=== PATIENT | male | born 1970 | race Caucasian/White ===

== ENCOUNTER 2018-09-16 09:19 | Emergency (ER) | payer MEDICARE, MEDICAID ==
[~2018-09-16] VITALS: Ht 167.6 cm; Wt 112.9 kg
[2018-09-16] MEDS ORDERED: IPRATRPIUM/ALBUTEROL 0.5/2.5MG 3 ML NEBU. NEB ONE (10:00)
--- NOTE | 2018-09-16 10:26 | RAD ---
CHEST PA LATERAL History: Cough, chest pain Comparison: None. Findings: Single lateral and 2 PA views of the chest are submitted. There is large left tension pneumothorax, complete collapse of the left lung. There is some deviation of the trachea to the right, also mild deviation of the cardiac silhouette to the right. There is probable very small left pleural effusion. Impression: 1. There is large left tension pneumothorax, complete collapse of the left lung. FOR INTERNAL CODING PURPOSES Critical result: Findings discussed with LIDA GONZALEZ at 09/16/2018 10:20 AM. RESULT CODE: (C) Electronically signed by: Rajendra Dos Santos MD (09/16/2018 10:21 AM) [id number]
[2018-09-16] MEDS ORDERED: IV NORMAL SALINE 1,000ML 1,000 ML IV ONE (10:45)
[2018-09-16 11:00] LABS: BASO # 0.1 x10^3/uL (0.0-0.2); BASO % 1 % (0-3); EOS # 0.1 x10^3/uL (0.0-0.7); EOS % 1 % (0-3); HEMATOCRIT 47.4 % (39.0-53.0); HEMOGLOBIN 15.7 g/dL (13.0-17.5); LYMPH # 2.4 x10^3/uL (1.0-4.8); LYMPH % 27 % (24-48); MEAN CORPUSCULAR HEMOGLOBIN 33 pg (25-35); MEAN CORPUSCULAR HGB CONC 33 g/dL (31-37); MEAN CORPUSCULAR VOLUME 99 fL (79-100); MONO # 1.1 x10^3/uL (0.0-1.1); MONO % 13 % (0-9); NEUT # 5.2 x10^3uL (1.8-7.7); NEUT % 58 % (31-73); PLATELET COUNT 271 x10^3/uL (140-400); RED BLOOD COUNT 4.77 x10^6/uL (4.30-5.70); RED CELL DISTRIBUTION WIDTH 12.9 % (11.5-14.5); WHITE BLOOD COUNT 8.9 x10^3/uL (4.0-11.0)
[2018-09-16] MEDS ORDERED: LORazepam 2 MG/ML VIAL IV ONE (11:00)
--- NOTE | 2018-09-16 11:23 | PHYS DOC ---
Past History Past Medical History: CAD, Hypertension, Other (Abilio syndrome with mental retardation) Past Surgical History: No Surgical History Alcohol Use: None Drug Use: None Adult General Chief Complaint Chief Complaint: COUGH HPI HPI Patient is a 47 year old male with history of Manuel syndrome and mental retardation brought in by his father because of cough. Patient had complaining of pain in left side of chest and cough for the last 4 or 5 days and was seen at his primary care physician office today and after having chest x-ray sent to emergency room because of" congestion of left lung"in chest x-ray. Patient's father states he did not have fever and sick contact, vomiting, diarrhea, complaining of sore throat. Review of Systems Review of Systems Constitutional: Denies fever or chills [] Eyes: Denies change in visual acuity, redness, or eye pain [] HENT: Denies nasal congestion or sore throat [] Respiratory: Reports cough and shortness of breath Cardiovascular: No additional information not addressed in HPI [] GI: Denies abdominal pain, nausea, vomiting, bloody stools or diarrhea [] : Denies dysuria or hematuria [] Musculoskeletal: Denies back pain or joint pain [] Integument: Denies rash or skin lesions [] Neurologic: Denies headache, focal weakness or sensory changes [] Endocrine: Denies polyuria or polydipsia [] All other systems were reviewed and found to be within normal limits, except as documented in this note. Current Medications Current Medications Current Medications Medications (Trade) Dose Ordered Sig/Krystal Start Time Stop Time Status Last Admin Dose Admin Albuterol/ Ipratropium (Duoneb) 3 ml 1X ONCE 09/16/18 10:00 09/16/18 10:01 DC 09/16/18 09:52 3 ML Lorazepam (Ativan) 1 mg 1X ONCE 09/16/18 11:00 09/16/18 11:01 DC 09/16/18 10:46 1 MG Sodium Chloride 1,000 ml @ 40 mls/hr 1X ONCE 09/16/18 10:45 09/17/18 11:44 09/16/18 10:47 40 MLS/HR Allergies Allergies Allergies Coded Allergies Type Severity Reaction Last Updated Verified Sulfa (Sulfonamide Antibiotics) Allergy Intermediate 09/16/18 Yes Physical Exam Physical Exam Constitutional: Well nourished, mild distress, non-toxic appearance. [] HENT: Normocephalic, atraumatic, bilateral external ears normal, oropharynx moist, no oral exudates, nose normal. [] Eyes: PERRLA, EOMI, conjunctiva normal, no discharge. [] Neck: Normal range of motion, no tenderness, supple, no stridor. [] Cardiovascular:Heart rate regular rhythm, no murmur [] Lungs & Thorax: Decrease of air movement in left lung, no respiratory distress with O2 sat of 92-95% at room air Abdomen: Bowel sounds normal, soft, no tenderness, no masses, no pulsatile masses. [] Skin: Warm, dry, no erythema, no rash. [] Back: No tenderness, no CVA tenderness. [] Extremities: No tenderness, no cyanosis, no clubbing, ROM intact, no edema. [] Neurologic: Alert and oriented X 1, normal motor function, normal sensory function, no focal deficits noted. [] Current Patient Data Vital Signs Vital Signs Date Time Temp Pulse Resp B/P (MAP) Pulse Ox O2 Delivery O2 Flow Rate FiO2 09/16/18 09:20 98.0 69 20 94 Room Air Lab Results Laboratory Tests Test 09/16/18 10:40 White Blood Count 8.9 x10^3/uL (4.0-11.0) Red Blood Count 4.77 x10^6/uL (4.30-5.70) Hemoglobin 15.7 g/dL (13.0-17.5) Hematocrit 47.4 % (39.0-53.0) Mean Corpuscular Volume 99 fL (79-100) Mean Corpuscular Hemoglobin 33 pg (25-35) Mean Corpuscular Hemoglobin Concent 33 g/dL (31-37) Red Cell Distribution Width 12.9 % (11.5-14.5) Platelet Count 271 x10^3/uL (140-400) Neutrophils (%) (Auto) 58 % (31-73) Lymphocytes (%) (Auto) 27 % (24-48) Monocytes (%) (Auto) 13 % (0-9) H Eosinophils (%) (Auto) 1 % (0-3) Basophils (%) (Auto) 1 % (0-3) Neutrophils # (Auto) 5.2 x10^3uL (1.8-7.7) Lymphocytes # (Auto) 2.4 x10^3/uL (1.0-4.8) Monocytes # (Auto) 1.1 x10^3/uL (0.0-1.1) Eosinophils # (Auto) 0.1 x10^3/uL (0.0-0.7) Basophils # (Auto) 0.1 x10^3/uL (0.0-0.2) Troponin I Quantitative < 0.017 ng/mL (0-0.055) EKG EKG EKG interpreted by me. EKG at 1052 showed normal sinus rhythm at rate of 80, left atrial abnormalities, left mcgrath axis, no acute ST and T-wave abnormalities. Radiology/Procedures Radiology/Procedures [address] [address] IMAGING REPORT Signed PATIENT: HAYDEN FRANKLIN ACCOUNT: [id number] : 1970 LOCATION: ER AGE: 47 SEX: M EXAM STATUS: REG ER ORD. PHYSICIAN: LIDA GONZALEZ MD REASON: cough PROCEDURE: CHEST PA & LATERAL CHEST PA LATERAL History: Cough, chest pain Comparison: None. Findings: Single lateral and 2 PA views of the chest are submitted. There is large left tension pneumothorax, complete collapse of the left lung. There is some deviation of the trachea to the right, also mild deviation of the cardiac silhouette to the right. There is probable very small left pleural effusion. Impression: 1. There is large left tension pneumothorax, complete collapse of the left lung. FOR INTERNAL CODING PURPOSES Critical result: Findings discussed with LIDA GONZALEZ at 09/16/2018 10:20 AM. RESULT CODE: (C) Electronically signed by: J Luis Dos Santos MD (09/16/2018 10:21 AM) [id number] [address] [address] IMAGING REPORT Signed PATIENT: HAYDEN FRANKLIN ACCOUNT: [id number] : 1970 LOCATION: ER AGE: 47 SEX: M EXAM STATUS: REG ER ORD. PHYSICIAN: LIDA GONZALEZ MD REASON: POST CHEST TUBE PROCEDURE: PORTABLE CHEST 1V PORTABLE CHEST 1V History: POST CHEST TUBE PLACEMENT Comparison: Exam earlier the same day Findings: AP portable view of the chest is submitted. There is now small caliber left chest tube present, previously seen left pneumothorax significantly smaller although probable residual small left pneumothorax more laterally and near the lung base. There is some airspace opacity of the mid to superior left hemithorax likely component of atelectasis. Impression: 1. There is now small caliber left chest tube, previously seen left pneumothorax smaller although small residual left pneumothorax. There is some airspace opacity of the mid to superior left hemithorax which may be due to atelectasis. Electronically signed by: J Luis Dos Santos MD (09/16/2018 11:28 AM) [id number] DICTATED AND SIGNED BY: J LUIS DOS SANTOS MD DATE: 09/16/18 1126 CC: EMILY DENIS MD; LIDA GONZALEZ MD ~ Course & Med Decision Making Course & Med Decision Making Pertinent Labs and Imaging studies reviewed. (See chart for details) Evaluation of patient in ER showed 47-year-old male patient sent from physician office because of abnormal chest x-ray. Chest x-ray showed patient pneumothorax but patient did not have any respiratory distress. 8 Macedonian chest tube(Cook tube ) was placed with successful opening of the lung. Dr. Denis informed at 1112 and recommended to transfer patient to [facility] [place]. Dr. Cote accepted admission at 1114 to [facility] [place]. Dragon Disclaimer Dragon Disclaimer This electronic medical record was generated, in whole or in part, using a voice recognition dictation system. Departure Departure: Impression: Primary Impression: Spontaneous tension pneumothorax Additional Impressions: Cough Hypoxia Manuel syndrome Disposition: XFER SHT-TRM HOSP ([facility] [place] at 11:15) Admitting Physician: Kuldeep Cote (Dr. Cote accepted transfer to [facility] [place] at 1114) Condition: IMPROVED Referrals: EMILY DENIS MD (PCP) Chest Tube Chest Tube Indication: Left tension pneumothorax Consent: Consent obtained from patient father Pre-Medication: Ativan Procedure: The patient was placed in a semirecumbent position with the head of the bed at 30 degrees. Local anesthesia over the insertion site of anterior axillary line at fifth intercostal space of left side of chest was with 1% lidocaine. An 3 mm incision was made in fifth intercostal space and 8 Macedonian guided catheter was placed with good air coming back without connection to waterseal. X-ray showed expansion of lung. The patient tolerated the procedure well Complications: None Critical Care Time Critical care time was 70 minutes exclusive of procedures. Problem Qualifiers LIDA GONZALEZ MD Sep 16, 2018 11:23
--- NOTE | 2018-09-16 11:32 | RAD ---
PORTABLE CHEST 1V History: POST CHEST TUBE PLACEMENT Comparison: Exam earlier the same day Findings: AP portable view of the chest is submitted. There is now small caliber left chest tube present, previously seen left pneumothorax significantly smaller although probable residual small left pneumothorax more laterally and near the lung base. There is some airspace opacity of the mid to superior left hemithorax likely component of atelectasis. Impression: 1. There is now small caliber left chest tube, previously seen left pneumothorax smaller although small residual left pneumothorax. There is some airspace opacity of the mid to superior left hemithorax which may be due to atelectasis. Electronically signed by: Rajendra Dos Santos MD (09/16/2018 11:28 AM) [id number]
[2018-09-16 11:45] VITALS: BP 153/67
[2018-09-16 12:01] LABS: ALBUMIN 3.7 g/dL (3.4-5.0); ALBUMIN/GLOBULIN RATIO 0.9 (1.0-1.7); CALCIUM 10.4 mg/dL (8.5-10.1); CREATININE 1.5 mg/dL (0.7-1.3); GFR 50.4; TOTAL BILIRUBIN 0.5 mg/dL (0.2-1.0); TOTAL PROTEIN 7.6 g/dL (6.4-8.2)
--- NOTE | 2018-09-17 15:58 | EKG ---
[address] [address] Test Date: 2018-09-16 Test Time: 10:52:44 Pat Name: HAYDEN FRANKLIN Department: Room: Gender: M [employer]: MONI : 1970 Requested By: LIDA GONZALEZ Order Number: [id number] Reading MD: Measurements Intervals [place] Rate: 80 P: -158 SD: 186 QRS: -12 QRSD: 114 T: 61 QT: 404 QTc: 470 Interpretive Statements SINUS RHYTHM LEFT ATRIAL ABNORMALITY LEFTWARD AXIS QRS(T) CONTOUR ABNORMALITY CONSISTENT WITH INFERIOR INFARCT PROBABLY OLD ABNORMAL ECG RI6.01 No previous ECG available for comparison
== END 2018-09-16 12:41 | disposition short-term general hospital (02) ==
LOC: ER 09:19
DX: J93.0 Spontaneous tension pneumothorax (principal); R09.02 Hypoxemia; Q93.82 Williams syndrome; I25.10 Atherosclerotic heart disease of native coronary artery without angina pectoris; I10 Essential (primary) hypertension; Z88.2 Allergy status to sulfonamides
CPT/HCPCS: 32551; 36415; 71045; 71046; 80053; 83880; 84484; 85025; 93005; 94640; 96374; 99291; J2060; J7620; J7030

== ENCOUNTER 2019-01-18 08:56 | Inpatient (IN) | payer MEDICARE, OTHER, BC ==
[~2019-01-18] VITALS: Ht 157.5 cm; Wt 115.2 kg
[2019-01-18 09:24] VITALS: BP 147/81
[2019-01-18 10:01] LABS: BASO # 0.1 x10^3/uL (0.0-0.2); BASO % 1 % (0-3); EOS # 0.1 x10^3/uL (0.0-0.7); EOS % 1 % (0-3); HEMATOCRIT 43.9 % (39.0-53.0); HEMOGLOBIN 14.6 g/dL (13.0-17.5); LYMPH # 1.2 x10^3/uL (1.0-4.8); LYMPH % 12 % (24-48); MEAN CORPUSCULAR HEMOGLOBIN 31 pg (25-35); MEAN CORPUSCULAR HGB CONC 33 g/dL (31-37); MEAN CORPUSCULAR VOLUME 93 fL (79-100); MONO # 1.1 x10^3/uL (0.0-1.1); MONO % 11 % (0-9); NEUT # 7.3 x10^3uL (1.8-7.7); NEUT % 75 % (31-73); PLATELET COUNT 290 x10^3/uL (140-400); RED BLOOD COUNT 4.71 x10^6/uL (4.30-5.70); WHITE BLOOD COUNT 9.7 x10^3/uL (4.0-11.0)
[2019-01-18 10:23] LABS: ALBUMIN 3.6 g/dL (3.4-5.0); ALBUMIN/GLOBULIN RATIO 0.9 (1.0-1.7); CALCIUM 10.4 mg/dL (8.5-10.1); CREATININE 1.5 mg/dL (0.7-1.3); GFR 50.2; POTASSIUM 3.9 mmol/L (3.5-5.1); TOTAL BILIRUBIN 0.5 mg/dL (0.2-1.0); TOTAL PROTEIN 7.8 g/dL (6.4-8.2)
[2019-01-18] MEDS ORDERED: IOHEXOL 300 MG/ML 75 ML VIAL. IV ONE (10:45)
--- NOTE | 2019-01-18 11:21 | EKG ---
[address] [address] Test Date: 2019-01-18 Test Time: 10:24:58 Pat Name: HAYDEN AZEVEDO Department: Room: [facility] Gender: M Compensator: MONI : 1970 Requested By: EMILY DENIS Order Number: [id number] Reading MD: Measurements Intervals [place] Rate: 70 P: 31 FL: 186 QRS: -14 QRSD: 124 T: 59 QT: 430 QTc: 467 Interpretive Statements SINUS RHYTHM LEFTWARD AXIS QRS(T) CONTOUR ABNORMALITY CONSISTENT WITH INFERIOR INFARCT POSSIBLY RECENT ST & T ABNORMALITY, CONSIDER HIGH LATERAL ISCHEMIA OR LEFT VENTRICULAR STRAIN ABNORMAL ECG RI6.02 No previous ECG available for comparison
[2019-01-18] MEDS ORDERED: CHOL10003 PO (11:29)
[2019-01-18] MEDS ORDERED: OMEG-33 PO (11:29)
[2019-01-18] MEDS ORDERED: LEVO25TA4 PO (11:29)
[2019-01-18] MEDS ORDERED: ALLO100T PO (11:29)
[2019-01-18] MEDS ORDERED: LISI1TAB5 PO (11:29)
[2019-01-18] MEDS ORDERED: BENZ-8 PO (11:29)
[2019-01-18] MEDS ORDERED: APIX5TAB3 PO (11:29)
--- NOTE | 2019-01-18 12:19 | RAD ---
Chest CTA History: Elevated d-dimer Technique: After bolus of intravenous contrast, CT imaging was performed of the chest. Multiplanar reconstruction images to include MIP reconstruction images are submitted. Exposure: One or more of the following individualized dose reduction techniques were utilized for this examination: 1. Automated exposure control 2. Adjustment of the mA and/or kV according to patient size 3. Use of iterative reconstruction technique. Comparison: None Findings: [ ] There is motion degradation. No central pulmonary embolism is identified of the main pulmonary arteries although otherwise cannot accurately evaluate for pulmonary embolic disease on this exam due to degree of contrast opacification of the pulmonary arteries and motion. Heart is enlarged. There is a 8.1 cm transverse by 8.1 cm AP by about 7.6 cm cc pleural-based hypodense collection along the left hemidiaphragm with adjacent atelectasis. Internal density measurements are about 35 Hounsfield units. There is other scattered mild mosaic attenuation of the lung parenchyma bilaterally although probably accentuated by motion. There is no pneumothorax. There is mild gas distention of esophagus. There is a small hyperenhancing lesion of the right lobe of the liver closer to the dome about 0.8 cm image 81 series 3. Left kidney is not seen on this exam. There is mild to moderate reverse S-shaped scoliosis of the thoracic spine. Impression: 1. No central pulmonary embolism is identified in the main pulmonary arteries although otherwise cannot accurately evaluate for pulmonary embolic disease on this exam. 2. There is more localized collection along the left hemidiaphragm apparently pleural-based with adjacent atelectasis, internal density measurements more likely due to complex fluid of uncertain sterility than soft tissue density. 3. Heart is enlarged. 4. There is a small nonspecific hyperenhancing lesion of the right lobe of the liver closer to the dome, otherwise cannot accurately evaluate. 5. There is mild gas distention of the esophagus. Electronically signed by: Rajendra Dos Santos MD (01/18/2019 12:16 PM) [id number]
[2019-01-18 13:13] LABS: BACTERIA,URINE 0 /HPF (0-FEW); BILIRUBIN,URINE NEG (NEG); CLARITY,URINE CLEAR; COLOR,URINE YELLOW; GLUCOSE,URINE NEG (NEG); NITRITE,URINE NEG (NEG); SQUAMOUS EPITHELIAL CELL,UR OCC /LPF; UROBILINOGEN,URINE 0.2 mg/dL (0.2 mg/dL); WBC,URINE 0 /HPF (0-4)
[2019-01-18 14:08] VITALS: BP 110/61
[2019-01-18] MEDS: IPRATRPIUM/ALBUTEROL 0.5/2.5MG 3 ML NEBU. NEB SCH ×2 (15:39→20:56)
[2019-01-18 19:53] VITALS: BP 129/83
[2019-01-18] MEDS: BENZONATATE 100 MG CAPSULE. PO SCH (20:56)
[2019-01-18 23:20] VITALS: BP 117/68
[2019-01-19] MEDS: IPRATRPIUM/ALBUTEROL 0.5/2.5MG 3 ML NEBU. NEB SCH ×4 (05:18→20:24)
[2019-01-19] MEDS: LEVOTHYROXINE 25 MCG TABLET. PO SCH (06:10)
[2019-01-19 06:12] VITALS: BP 136/73
[2019-01-19 07:03] LABS: BASO # 0.1 x10^3/uL (0.0-0.2); BASO % 1 % (0-3); EOS # 0.2 x10^3/uL (0.0-0.7); EOS % 3 % (0-3); HEMATOCRIT 40.7 % (39.0-53.0); HEMOGLOBIN 13.8 g/dL (13.0-17.5); LYMPH # 1.4 x10^3/uL (1.0-4.8); LYMPH % 27 % (24-48); MEAN CORPUSCULAR HEMOGLOBIN 32 pg (25-35); MEAN CORPUSCULAR HGB CONC 34 g/dL (31-37); MEAN CORPUSCULAR VOLUME 94 fL (79-100); MONO # 0.9 x10^3/uL (0.0-1.1); MONO % 18 % (0-9); NEUT # 2.6 x10^3uL (1.8-7.7); NEUT % 50 % (31-73); PLATELET COUNT 242 x10^3/uL (140-400); RED BLOOD COUNT 4.35 x10^6/uL (4.30-5.70); RED CELL DISTRIBUTION WIDTH 14.1 % (11.5-14.5); WHITE BLOOD COUNT 5.1 x10^3/uL (4.0-11.0)
[2019-01-19 07:11] LABS: CALCIUM 9.4 mg/dL (8.5-10.1); CREATININE 1.3 mg/dL (0.7-1.3); GFR 59.2; POTASSIUM 3.2 mmol/L (3.5-5.1)
[2019-01-19] MEDS: predniSONE 20 MG TABLET PO SCH (08:45)
[2019-01-19] MEDS: OMEGA-3 FATTY ACIDS/FISH OIL 1,000 MG CAPSULE. PO SCH (08:45)
[2019-01-19] MEDS: APIXABAN 5 MG TABLET. PO SCH (08:45)
[2019-01-19] MEDS: hydroCHLOROthiazide 12.5 MG CAPSULE PO SCH (08:45)
[2019-01-19] MEDS: LISINOPRIL 20 MG TABLET PO SCH (08:45)
[2019-01-19] MEDS: BENZONATATE 100 MG CAPSULE. PO SCH ×3 (08:45→20:24)
[2019-01-19] MEDS: CHOLECALCIFEROL (VITAMIN D3) 1,000 UNIT TABLET PO SCH (08:45)
[2019-01-19] MEDS: ALLOPURINOL 100 MG TABLET. PO SCH (08:45)
[2019-01-19] MEDS ORDERED: POTASSIUM CHLORIDE 20 MEQ TABLET.ER. PO ONE (09:00)
[2019-01-19 10:01] VITALS: BP 133/72
[2019-01-19 14:35] VITALS: BP 117/66
--- NOTE | 2019-01-19 17:55 | RAD ---
Bilateral lower extremity venous duplex study 01/19/2019 Clinical History: Elevated d-dimer. Technique: Using a combination of real time ultrasound imaging and color-flow and pulse Doppler imaging techniques along with graded compression and augmentation, duplex evaluation of the deep venous system of the both lower extremities was performed. Multiple images were obtained. Findings: This study is limited to some degree due to the patient's large body habitus. There is no sonographic evidence of deep venous thrombosis involving the visualized deep venous structures of either lower extremity. Impression: Negative study. Electronically signed by: Oziel Bundy MD (01/19/2019 5:52 PM) [facility]
[2019-01-19 18:44] VITALS: BP 106/72
[2019-01-19 19:55] VITALS: BP 121/69
[2019-01-20 00:30] VITALS: BP 106/50
--- NOTE | 2019-01-20 05:27 | PN ---
DATE: SUBJECTIVE: A 48-year-old male with some difficulty in breathing. The patient has been given breathing treatments, some prednisone, but a CT scan demonstrated a pleural effusion or some other collection of fluid in that left lower lobe. As a result of this, the patient was admitted to the hospital or continued to be in the hospital, try to get a tap on him, thoracentesis. Radiology says he probably needs a biopsy with this type of a fluid collection. We will discuss with the family whether or not they wanted him transferred down to [place] now or to do this as an outpatient. OBJECTIVE: VITAL SIGNS: Otherwise, his vital signs remained stable. He is feeling better overall and his blood pressure is 130/70, respiratory rate 16, pulse 90, afebrile. GENERAL: The patient is alert, baseline for him. LUNGS: Occasional rhonchi noted, but moving air better. CARDIOVASCULAR: Regular sinus rhythm. ABDOMEN: Soft, nontender. EXTREMITIES: No clubbing, cyanosis, nor edema. NEUROLOGIC: At baseline. IMPRESSION: Dyspnea, fluid collection in the left lower lobe, chronic kidney disease stage 3. Hypokalemia, elevated D-dimer. PLAN: We will make arrangements for possible transfer or outpatient biopsy of this area. EMILY DENIS MD DR: RODRIGUEZ/kendal JOB#: [id number] / [id number]
[2019-01-20] MEDS: IPRATRPIUM/ALBUTEROL 0.5/2.5MG 3 ML NEBU. NEB SCH ×2 (05:40→10:38)
[2019-01-20 06:00] VITALS: BP 142/67
[2019-01-20] MEDS: LEVOTHYROXINE 25 MCG TABLET. PO SCH (06:01)
[2019-01-20] MEDS: LISINOPRIL 20 MG TABLET PO SCH (07:52)
[2019-01-20] MEDS: predniSONE 20 MG TABLET PO SCH (07:52)
[2019-01-20] MEDS: ALLOPURINOL 100 MG TABLET. PO SCH (07:52)
[2019-01-20] MEDS: OMEGA-3 FATTY ACIDS/FISH OIL 1,000 MG CAPSULE. PO SCH (07:52)
[2019-01-20] MEDS: BENZONATATE 100 MG CAPSULE. PO SCH (07:52)
[2019-01-20] MEDS: APIXABAN 5 MG TABLET. PO SCH (07:52)
[2019-01-20] MEDS: CHOLECALCIFEROL (VITAMIN D3) 1,000 UNIT TABLET PO SCH (07:52)
[2019-01-20] MEDS: hydroCHLOROthiazide 12.5 MG CAPSULE PO SCH (07:52)
[2019-01-20 11:49] VITALS: BP 118/87
[2019-01-20] MEDS ORDERED: PRED-220 PO (12:29)
[2019-01-20] MEDS ORDERED: IPRA3AMP29 NEB (12:32)
--- NOTE | 2019-01-28 14:58 | DS ---
DATE OF DISCHARGE: 01/20/2019 HOSPITAL COURSE: A 48-year-old male, difficulty breathing, came in through the Emergency Room demonstrated a pleural effusion. The patient was diuresed. The patient is unable to have a thoracentesis here. They recommended possible even a resection of that area. In any case, with aggressive pulmonary toilet and IV Lasix, the patient made good progress during the rest of his hospitalization and was discharged to home in the care of his father. The patient otherwise made good progress, positive D-dimer, but the patient negative for any venous clots whatsoever. The patient made good progress during the rest of his hospitalization. There were no complications. IMPRESSION: Dyspnea, pleural effusions, developmentally delayed mild nonspecific hematuria. The patient will be discharged home on a heart healthy diet, decreased activity, and followup accordingly as an outpatient for his pleural effusion. EMILY DENIS MD DR: RODRIGUEZ/kendal JOB#: [id number] / [id number]
== END 2019-01-20 12:55 | disposition home or self-care (01) | DRG 187 ==
LOC: ICU 08:58
PROVIDERS: ADMIT Family Medicine; ATTEND Family Medicine
DX: J90 Pleural effusion, not elsewhere classified (principal); Z68.42 Body mass index [BMI] 45.0-49.9, adult; E87.6 Hypokalemia; N18.3 Chronic kidney disease, stage 3 (moderate); Z79.899 Other long term (current) drug therapy; Z88.2 Allergy status to sulfonamides; R31.9 Hematuria, unspecified; R06.00 Dyspnea, unspecified; R79.89 Other specified abnormal findings of blood chemistry; R62.50 Unspecified lack of expected normal physiological development in childhood
CPT/HCPCS: 36415; 71275; 80048; 80053; 81001; 82550; 83880; 84484; 85025; 85379; 85610; 85730; 87641; 93005; 93970; 94640; J7512; J7620; Q9967

== ENCOUNTER → 2019-09-26 | Outpatient (CLI) | payer MEDICARE, BC, OTHER ==
[~2019-09-26] MED LIST: ALLO100T PO; APIX5TAB3 PO; BENZ-8 PO; CHOL10003 PO; IPRA3AMP29 NEB; LEVO25TA4 PO; LISI1TAB19 PO; OMEG-33 PO; PRED-220 PO
--- NOTE | 2019-09-26 09:59 | RAD ---
EXAM: Chest, 2 views. HISTORY: Cough. COMPARISON: 01/18/2019 FINDINGS: 2 views of chest are obtained. There is lingular and bilateral lower lobe and suspected right upper lobe atelectasis or interstitial infiltrate. No pleural effusion or pneumothorax is seen. The heart is normal in size. IMPRESSION: Lingular, bilateral lower lobe and suspected right upper lobe atelectasis or interstitial infiltrate. Electronically signed by: Lisa Fermin MD (09/26/2019 9:55 AM) [id number]
== END | disposition home or self-care (01) ==
LOC: RAD 09:33
PROVIDERS: ATTEND Family Medicine
DX: R06.02 Shortness of breath (principal)
CPT/HCPCS: 71046

== ENCOUNTER 2021-04-17 10:24 | Emergency (ER) | payer MEDICARE, BC, OTHER ==
[~2021-04-17] VITALS: Ht 162.6 cm; Wt 112.6 kg
[~2021-04-17 10:24] MED LIST changes: -LISI1TAB19 PO; +LISI1TAB37 PO
[2021-04-17] MEDS ORDERED: ACETAMINOPHEN 325 MG TABLET PO ONE (11:00)
--- NOTE | 2021-04-17 11:01 | PHYS DOC ---
Past History Past Medical History: CAD, Hypertension, Other (KAREN COREY APRN) Past Surgical History: No Surgical History (KAREN COREY APRN) Alcohol Use: None Drug Use: None (KAREN COREY APRN) General Adult EDM: Chief Complaint: FEVER HPI: HPI: Patient is a 50-year-old male who presents with fever and cough since yesterday. Patient was brought in by his father who provided medical history due to patient being mentally challenged. Dad states that patient was exposed to possible Covid a few days ago. 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 Patient is afebrile on arrival. Patient received both doses of his Pfizer vaccination. Patient is hemodynamically stable. History of hypertension. (KAREN COREY APRN) Review of Systems: Review of Systems: Constitutional: Reports fever and chills Eyes: Denies change in visual acuity HENT: Denies nasal congestion or sore throat Respiratory: Reports cough. Denies shortness of breath. Cardiovascular: Denies chest pain or edema GI: Denies abdominal pain, nausea, vomiting, bloody stools or diarrhea : Denies dysuria Musculoskeletal: Denies back pain or joint pain Integument: Denies rash Neurologic: Denies headache, focal weakness or sensory changes Endocrine: Denies polyuria or polydipsia Lymphatic: Denies swollen glands Psychiatric: Denies depression or anxiety (KAREN COREY APRN) Allergies: Allergies: Allergies Coded Allergies Type Severity Reaction Last Updated Verified Sulfa (Sulfonamide Antibiotics) Allergy Intermediate 09/16/18 Yes (KAREN COREY APRN) Physical Exam: PE: Constitutional: Well developed, well nourished, no acute distress, non-toxic appearance. [] HENT: Normocephalic, atraumatic, bilateral external ears normal, oropharynx moist, no oral exudates, nose normal. [] Eyes: PERRLA, EOMI, conjunctiva normal, no discharge. [] Neck: Normal range of motion, no tenderness, supple, no stridor. [] Cardiovascular:Heart rate regular rhythm, no murmur [] Lungs & Thorax: Bilateral breath sounds clear to auscultation [] Abdomen: Bowel sounds normal, soft, no tenderness, no masses, no pulsatile masses. [] Skin: Warm, dry, no erythema, no rash. [] Back: No tenderness, no CVA tenderness. [] Extremities: No tenderness, no cyanosis, no clubbing, ROM intact, no edema. [] Neurologic: Alert and oriented X 3, normal motor function, normal sensory function, no focal deficits noted. [] Psychologic: Affect normal, judgement normal, mood normal. [] (KAREN COREY APRN) EKG: EKG: [] (KAREN COREY APRN) Radiology/Procedures: Radiology/Procedures: []EXAM: Chest, 2 views. HISTORY: Cough and fever. COMPARISON: 09/26/2019 FINDINGS: 2 views of the chest are obtained. There is partially consolidated left lower lobe infiltrate. There is right middle and lower lobe linear atelectasis or infiltrate. There is no pleural effusion or pneumothorax. There is a prominent cardiac silhouette. IMPRESSION: Partially consolidated left lower lobe infiltrate and right middle and lower lobe linear atelectasis or interstitial infiltrate. Electronically signed by: Lisa Fermin MD (04/17/2021 11:37 AM) [id number] (KAREN COREY APRN) Heart Score: C/O Chest Pain: No Risk Factors: Risk Factors: DM, Current or recent (<one month) smoker, HTN, HLP, family history of CAD, obesity. Risk Scores: Score 0 - 3: 2.5% MACE over next 6 weeks - Discharge Home Score 4 - 6: 20.3% MACE over next 6 weeks - Admit for Clinical Observation Score 7 - 10: 72.7% MACE over next 6 weeks - Early Invasive Strategies (KAREN COREY APRN) Course & Med Decision Making: Course & Med Decision Making Pertinent Labs and Imaging studies reviewed. (See chart for details) [] 50-year-old male presents with fever and cough that started yesterday. Patient is mentally challenged and was dropped off in the ER by his father. Dad reports patient was recently exposed to Covid. Patient received 2 doses of his Pfizer vaccine. Patient had a fever of 101 this morning and was given ibuprofen along with a albuterol treatment at home. Patient is hemodynamically stable. Afebrile. No hypoxia. Patient given 600 mg of Tylenol and tested for Covid. Chest x-ray shows partially consolidated left lower lobe infiltrate and right middle and lower lobe linear atelectasis. Patient most likely has Covid pneumonia. Patient treated with dexamethasone in the ER. Patient sent home with azithromycin and instructed patient to quarantine. Patient should drink plenty of fluids to prevent dehydration. Continue taking ibuprofen and Tylenol at home for fever and chills. Patient should return to the ER if symptoms worsen. (KAREN COREY APRN) Dragon Disclaimer: Dragon Disclaimer: This electronic medical record was generated, in whole or in part, using a voice recognition dictation system. (KAREN COREY APRN) Departure Departure: Impression: Primary Impression: Pneumonia, viral Additional Impression: Person under investigation for COVID-19 Disposition: HOME / SELF CARE / HOMELESS Condition: STABLE Referrals: EMILY DENIS MD (PCP) Patient Instructions: Pneumonia, Adult, [id number] Additional Instructions: You are seen in the emergency room for cough and fever. You were given Tylenol while in the ER along with dexamethasone. I am sending a prescription for azithromycin. Make sure you take the antibiotic in full and as directed. Fol low-up with your PCP. Return emergency room with worsening symptoms or concerns. You have been tested for or diagnosed with COVID-19. It is an infection caused by a new type of coronavirus. COVID-19 will cause cold-like or mild flu symptoms in most. It can cause more severe symptoms like problems breathing in some. There is no treatment for COVID-19. The body will clear the infection over time. Self-care will help to ease discomfort. Steps to Take: Self-Care Rest as needed. Healthy habits may help you feel better. Steps include: Choose healthy foods including fruits and vegetables. Drink water throughout the day. Get plenty of sleep each night. If you smoke, try to quit. It may ease breathing. Avoid alcohol. Keep Others Healthy The virus can spread to others. Droplets are released every time you sneeze or cough. The droplets can get into the mouth, nose, or eyes of people near you and lead to infection. To lower the chances of spreading COVID-19 to others: Stay at home until your doctor has said it is safe to leave. If you tested positive this will mean staying isolated until both of the following are true: At least 7 days have passed since the start of illness. You are free of fever for at least 72 hours without the use of medicine. During this time: - Avoid public areas, events, or transportation. Do not return to work or school until your doctor has said it is safe to do so. - Call ahead if you need to go to a medical center. Let them know you may have COVID-19. It will help them guide you where to go. They may also ask you to wear a facemask when you come to the office. - If you call for emergency medical services, let them know you may have COVID- 19. While at home: - Try to avoid close contact with others. Stay about 6 feet away. - If possible, spend most of your time in a separate room from others. - Use a face mask if you will be in close contact with others such as sharing a room or vehicle. - Have someone wipe down common surfaces in the home. Use household cupola melter helper every day on areas like doorknobs, counters, or sinks. - Cough or sneeze into a tissue. Throw the tissue away right after use. If a ti ssue is not available, cough or sneeze into your elbow. - Wash your hands often. Wash them after sneezing or coughing. Use soap and water and wash for at least 20 seconds. Alcohol based hand septic tank cleaner can be used if soap and water is not available. - Do not prepare food for others. Avoid sharing personal items like forks, spoons, or toothbrushes. - Avoid close contact with pets while you are sick. There is no evidence of the virus passing to pets. This is a safety step until more is known about this virus. Isolation can be frustrating. Social interaction can help. Keep in touch with friends and family through phone and tech options. You can still interact with others in your home, just keep a safe distance of about 6 feet. Follow-up: Your doctors office will check in with you to see if there are any changes in your health. You may be asked to keep track of symptoms to share with them. They will also let you know when you are clear to be in public again. Problems to Look Out For: Contact your doctor if your recovery is not going as you expect. Get emergency care if you have problems such as: - Trouble breathing - Nonstop chest pain or pressure - Changes in awareness, confusion, or problems waking - Lips or face have bluish color - Worsening of symptoms If you think you have an emergency, call for emergency medical services right away. As taken from [facility] Azithromycin (AZITHROMYCIN TABLET) 250 Mg Tablet 1 PKG PO UD for infection for 5 Days, #6 TAB 0 Refills 2 the first day followed by 1 for days 2-5 Prov: KAREN COREY APRN 04/17/21 Attending Signature Attending Signature I have reviewed the PA/[employer]'s note and plan of care. I was available for consultation as needed during the patient's visit in the emergency department. I agree with the clinical impression, plan, and disposition. (ARAM AGUAYO DO) KAREN COREY APRN Apr 17, 2021 11:01 ARAM AGUAYO DO Apr 17, 2021 23:19
--- NOTE | 2021-04-17 11:39 | RAD ---
EXAM: Chest, 2 views. HISTORY: Cough and fever. COMPARISON: 09/26/2019 FINDINGS: 2 views of the chest are obtained. There is partially consolidated left lower lobe infiltra te. There is right middle and lower lobe linear atelectasis or infiltrate. There is no pleural effusi on or pneumothorax. There is a prominent cardiac silhouette. IMPRESSION: Partially consolidated left lower lobe infiltrate and right middle and lower lobe linear atelectasis or interstitial infiltrate. Electronically signed by: Lisa Fermin MD (04/17/2021 11:37 AM) [id number]
[2021-04-17 12:21] LABS: BACTERIA,URINE 0 /HPF (0-FEW); BILIRUBIN,URINE NEG (NEG); CLARITY,URINE CLEAR; COLOR,URINE YELLOW; GLUCOSE,URINE NEG (NEG); NITRITE,URINE NEG (NEG); SQUAMOUS EPITHELIAL CELL,UR MANY /LPF; UROBILINOGEN,URINE 0.2 mg/dL (0.2 mg/dL)
[2021-04-17] MEDS ORDERED: AZIT250T6 PO (12:38)
[2021-04-17 12:41] VITALS: BP 157/90
[2021-04-17] MEDS ORDERED: DEXAMETHASONE SOD PHOS 10 MG/ML VIAL. IVP ONE (12:45)
== END 2021-04-17 12:45 | disposition home or self-care (01) ==
LOC: ER 10:24
DX: U07.1 COVID-19 (principal); J12.9 Viral pneumonia, unspecified; I25.10 Atherosclerotic heart disease of native coronary artery without angina pectoris; I10 Essential (primary) hypertension; Z88.2 Allergy status to sulfonamides
CPT/HCPCS: 71046; 81001; 96374; 99284; C9803; J1100; U0003